=== PATIENT | female | born 1940 | race Caucasian/White ===

== ENCOUNTER 2016-06-14 10:33 | Observation (INO) | payer OTHER, MEDICAID ==
--- NOTE | 2016-06-14 10:50 | EDPHY ---
H & P HPI/ROS: CHIEF COMPLAINT: Hip pain, fall. HISTORY OF PRESENT ILLNESS: The patient is a 76-year-old female with a history of cerebral atherosclerosis and Parkinson's with resultant dementia who presents via EMS after a fall out of bed two nights ago. She has had pain in her right hip since. She had hip x-rays taken yesterday that showed an impacted fracture of the right femoral neck. EMS was notified by Dee Andino when they learned of the x-ray results. She is in a mostly non-verbal state and the history is thus limited. REVIEW OF SYSTEMS: A ten point review of systems was performed and is negative with the exception of the items mentioned in the HPI. Source: Family, EMS, detention records - Medical/Surgical History PMH: 1. Cerebral atherosclerosis. 2. ADD. 3. Parkinson's. 4. Multiple CVAs. 5. Dementia. 6. Hypothyroidism. - Social History Additional Social History: Lives at [place]. Her sister is at the bedside. - Physical Exam Exam: General Appearance: Alert. Vital signs reviewed and are normal. Blood pressure 110/55. Room air pulse ox 90%. Head: Normocephalic atraumatic. Eyes: Pupils equal and round, no conjunctival injection, no discharge. Anicteric. ENT, Mouth: Mucous membranes are dry, no oropharyngeal erythema or edema. Neck: No lymphadenopathy, supple. No parent tenderness with palpation over the cervical spine in the midline. Respiratory: Lungs are clear to auscultation; no wheezes, rales, or rhonchi. Cardiovascular: Regular rate and rhythm; no murmur, rub, or gallop. Occasional ectopy. Gastrointestinal: Abdomen is soft and nontender, no masses or organomegaly, bowel sounds normal. Skin: Warm and dry, no rashes on exposed skin, normal color. Back: Nontender to palpation over the thoracolumbar spine. No CVAT. Extremities: Right leg is foreshortened and rotated. Tender to palpation over the right proximal femur. No lower extremity edema, no calf tenderness or swelling. Trace peripheral edema to right leg. Normal peripheral pulses. Neurological: She is alert, eyes open. Very little verbalization. She is not able to answer orientation questions. She follows some simple commands. Facial expressions appear symmetric. Tongue is midline. Extraocular movements are full. She is spontaneously moving both upper extremities. Psychiatric: Pleasant affect. No agitation. Constitutional: Initial Vital Signs Temperature (C) 36.4 C 06/14/16 10:35 Heart Rate 88 06/14/16 10:35 Respiratory Rate 16 06/14/16 10:35 Blood Pressure 110/55 L 06/14/16 10:35 O2 Sat (%) 90 L 06/14/16 10:35 O2 Delivery Mode Nasal Cannula O2 (L/minute) 2 Allergies/Adverse Reactions: No Known Allergies Allergy (Unverified 06/14/16 10:53) Home Medications: Medication Instructions Recorded Acetaminophen [Tylenol 325mg (*)] 1,300 mg PO Q8HRS PRN 06/14/16 Aspirin [Aspirin 81mg (*)] 81 mg PO DAILY 06/14/16 Bisacodyl [Dulcolax] 10 mg RC DAILY PRN 06/14/16 Carbidopa/Levodopa 25/100Mg 1 tab PO BID@09,18 06/14/16 [Sinemet 25/100 MG (*)] Carbidopa/Levodopa 25/100Mg 1.5 tab PO BID@12,06/14/16 [Sinemet 25/100 MG (*)] Estring Ring 2mg 1 franck VG Q90D 06/14/16 Herbals/Supplements -Info Only 1 ea PO DAILY 06/14/16 LORazepam [Ativan (*)] 0.25 mg PO Q6HRS PRN 06/14/16 Levothyroxine [Synthroid 25 mcg 25 mcg PO DAILY06 06/14/16 (*)] Magnesium Hydroxide [Milk of 30 ml PO DAILY PRN 06/14/16 Magnesia] Sennosides/Docusate Sodium 1 - 2 each PO BID PRN 06/14/16 [Senna-Docusate Sodium Tablet] morphINE [Roxanol 10 mg/0.5 ml 2.5 - 10 mg PO Q2HRS PRN #40 udsyr 06/14/16 oral soln (*)] Medical Decision Making - Diagnostics EKG Interpretation: 12 lead EKG is interpreted in Trace master View by emergency department physician. ED Course/Re-evaluation: The patient is a 76-year-old female on hospice care living at [place]. She arrives with her sister and hospice nurse at bedside. Right hip x-ray ordered. I independently reviewed the patient's imaging studies on the PACS system. Please see Imaging section for radiologist reports. There is a mildly impacted right femoral neck fracture on x-ray. These results were relayed to the patient's sister who is her decision maker. We discussed at some length whether or not surgery should be performed. Her sister told me that she would like her to be able to sit up in a chair and move about. I do not think that she will be able to do that without undergoing surgery. 1143: Consulted with Dr. Garner, orthopedics. He will operate on the patient's hip tonight. I discussed this with the patient's sister. She is comfortable with the plan. An IV will be established. Chest x-ray, EKG ordered. I reviewed the chest x-ray in the radiologist's report. Shows mild Cardiology with some possible pulmonary edema or interstitial lung disease. 1158: Consulted with Dr. Gutiérrez, hospitalist. He accepts admission. Differential Diagnosis: I considered a differential diagnosis that includes but is not limited to pelvic fracture, hip fracture, contusion, and dislocation. - Data Points Laboratory Results: Laboratory Results 06/14/16 10:30 06/14/16 10:30 Medications Given: Discontinued Medications Morphine Sulfate (Morphine) 0.5 - 2 mg IVP Q2 PRN PRN Reason: Pain, Severe Unable to Take PO Stop: 06/24/16 16:05 Last Admin: 06/14/16 17:12 Dose: 2 mg Departure - Departure Disposition: [facility] Inpatient Acute Clinical Impression: Femur fracture, right Qualifiers: Encounter type: initial encounter Femur location: head Fracture type: closed Qualified Code(s): S72.051A - Unspecified fracture of head of right femur, initial encounter for closed fracture Condition: Fair Report Scribed for: Nancy Segura Report Scribed by: Rafi Dickson Date of Report: 06/14/16 Time of Report: 11:18 Physician Review and Approval Statement: 06/14/16 10:50 Portions of this note were transcribed by the biomedical engineering technician. I, Dr. Nancy Segura, personally performed the history, physical exam, and medical decision- making; and confirmed the accuracy of the information in the transcribed note.
[2016-06-14 11:57] LABS: % IMMATURE GRANULYOCYTES 0.5 % (0.0-1.1); ABSOLUTE IMMATURE GRANULOCYTES 0.05 10^3/uL (0.00-0.10); ADD DIFF? NO; ADD MORPH? NO; ADD SCAN? NO; ATYPICAL LYMPHOCYTE FLAG 10 (0-99); FRAGMENT RBC FLAG 0 (0-99); HEMOGLOBIN 12.2 g/dL (12.6-16.3); LEFT SHIFT FLG 0 (0-99); LIPEMIA HEMOLYSIS FLAG 90 (0-99); MEAN CELL HEMOGLOBIN 33.4 pg (27.9-34.1); MEAN CELL HEMOGLOBIN CONCENTR. 33.9 g/dL (32.4-36.7); MEAN CELL VOLUME 98.6 fL (81.5-99.8); MEAN PLATELET VOLUME 9.4 fL (8.7-11.7); PLATELET CLUMPS FLAG 10 (0-99); PLATELET COUNT 268 10^3/uL (150-400); RED BLOOD CELL COUNT 3.65 10^6/uL (4.18-5.33); RED CELL DISTRIBUTION WIDTH 13.8 % (11.5-15.2)
[2016-06-14 12:05] LABS: ANION GAP 10 mEq/L (8-16); CALCIUM 9.1 mg/dL (8.5-10.4); CARBON DIOXIDE 22 mEq/l (22-31); CHLORIDE 105 mEq/L (97-110); CREATININE 0.7 mg/dL (0.6-1.0); GLOMERULAR FILTRATION RATE > 60; GLUCOSE 140 mg/dL (70-100); POTASSIUM 4.1 mEq/L (3.5-5.2); SODIUM 137 mEq/L (134-144)
--- NOTE | 2016-06-14 12:17 | CPEKG ---
Heart Rate: 88 RR Interval: 682 P-R Interval: 156 QRSD Interval: 90 QT Interval: 372 QTC Interval: 450 P Sutton: 81 QRS Sutton: -68 T Wave Sutton: 35 EKG Severity - ABNORMAL ECG - EKG Impression: UNKNOWN RHYTHM, IRREGULAR RATE 71-118 EKG Impression: LEFT ANTERIOR FASCICULAR BLOCK EKG Impression: PROBABLE ANTEROSEPTAL INFARCT, AGE INDETERM Electronically Signed By: Phong Vega 14-Jun-2016 21:57:35
[2016-06-14 13:47] LABS: INR 1.19 (0.83-1.16); PROTIME(PATIENT) 15.1 SEC (12.0-15.0)
[2016-06-14 13:48] LABS: APTT 28.8 SEC (23.0-38.0)
[2016-06-14] MEDS ORDERED: ONDANSETRON 4 MG/2 ML VIAL IVP PRN (16:06)
[2016-06-14] MEDS ORDERED: ONDANSETRON DISINTEGRATING 4 MG TAB PO PRN (16:06)
[2016-06-14] MEDS ORDERED: ACETAMINOPHEN 325 MG TAB PO PRN (16:06)
[2016-06-14] MEDS ORDERED: MAGNESIUM HYDROXIDE 30 ML UDCUP PO PRN (16:08)
[2016-06-14] MEDS ORDERED: SENNOSIDES/DOCUSATE SODIUM TAB PO PRN (16:08)
[2016-06-14] MEDS ORDERED: morphINE 10 MG/0.5 ML UDSYR PO PRN (16:08)
[2016-06-14] MEDS ORDERED: LORazepam 0.5 MG TAB PO PRN (16:08)
--- NOTE | 2016-06-14 16:13 | PDGENHP ---
History and Physical - Chief Complaint Acute hip pain - History of Present Illness 76-year-old female presenting with acute pain characterized as severe, located in the right hip exacerbated by ambulation as well as repositioning. Onset of symptoms was 2 days ago and duration has been intermittent thereafter, occurring only when the patient is being repositioned and pivoting from bed to chair. This occurred after associated fall from her bed while sleeping. Most of history is provided by the patient's sister as the patient is minimally verbal at baseline. The sister reports that there were no other abnormalities prior to her fall. She has not otherwise been expressing any infectious symptoms. The patient's baseline level of functioning is bed and chair pivots in between. She had no longer engages with physical therapy as this has been felt to be inappropriate at this time. She is currently enrolled in hospice but she is not requiring ongoing pain medication. She has been eating and drinking and has not notably lost weight recently. History Information - Allergies/Home Medication List Allergies/Adverse Reactions: No Known Allergies Allergy (Unverified 06/14/16 10:53) Home Medications: Acetaminophen [Tylenol 325mg (*)] 1,300 mg PO Q8HRS PRN 06/14/16 [Last Taken Unknown] Aspirin [Aspirin 81mg (*)] 81 mg PO DAILY 06/14/16 [Last Taken Unknown] Bisacodyl [Dulcolax] 10 mg RC DAILY PRN 06/14/16 [Last Taken Unknown] Carbidopa/Levodopa 25/100Mg [Sinemet 25/100 MG (*)] 1 tab PO BID@,18 06/14/16 [Last Taken Unknown] Carbidopa/Levodopa 25/100Mg [Sinemet 25/100 MG (*)] 1.5 tab PO BID@, [Last Taken Unknown] Estring Ring 2mg 1 franck VG Q90D 06/14/16 [Last Taken Unknown] Herbals/Supplements -Info Only 1 ea PO DAILY 06/14/16 [Last Taken Unknown] Hydrocodone/Acetaminophen [[place] 5/325 (*)] 1 each PO Q4HRS PRN 06/14/16 [Last Taken Unknown] LORazepam [Ativan (*)] 0.25 mg PO Q6HRS PRN 06/14/16 [Last Taken Unknown] Levothyroxine [Synthroid 25 mcg (*)] 25 mcg PO DAILY06 06/14/16 [Last Taken Unknown] Magnesium Hydroxide [Milk of Magnesia] 30 ml PO DAILY PRN 06/14/16 [Last Taken Unknown] Sennosides/Docusate Sodium [Senna-Docusate Sodium Tablet] 1 - 2 each PO BID PRN 06/14/16 [Last Taken Unknown] I have personally reviewed and updated: family history, medical history, social history, surgical history - Past Medical History Additional medical history: Advanced Parkinson's disease with dementia, minimally verbal at baseline. History of CVAs. Hypothyroidism - Surgical History Reports: no pertinent surgical hx - Family History Additional family history: Father with alcoholism and colon cancer - Social History Smoking Status: Never smoked Alcohol Use: None Drug Use: None Additional social history: Receive complete care for her ADLs at [place], only activity is bed to chair with pivoting and she does not ambulate at baseline Review of Systems ROS: 10pt was reviewed & negative except for what was stated in HPI & below Muscolosketal: Reports: joint pain Physical Exam Temp Pulse Resp BP Pulse Ox 36.3 C 89 12 145/84 H 92 06/14/16 13:48 06/14/16 13:48 06/14/16 13:48 06/14/16 13:48 06/14/16 13:48 O2 (L/minute) 1 Constitutional: no apparent distress, not in pain, chronically ill appearing, No uncomfortable Cardiovascular: regular rate and rhythym, no murmur, rub, or gallop, No edema Respiratory: no respiratory distress, no rales or rhonchi, clear to auscultation Gastrointestinal: normoactive bowel sounds, soft, non-tender abdomen, no palpable masses Musculoskeletal: other (Pain with passive range of motion of the right lower extremity, no tenderness to palpation in the right hip) Neurologic: other (Motor strength is 3/5 in the left lower extremity and 5/5 in the distal left lower extremity comma motor strength is 5/5 bilateral upper extremities, patient is able to follow some 1 step commands but has delayed response time and responds better to visual demonstration then auditory command) Lab Data & Imaging Review 06/14/16 10:30 06/14/16 10:30 WBC 10.08 10^3/uL (3.80-9.50) H 06/14/16 10:30 RBC 3.65 10^6/uL (4.18-5.33) L 06/14/16 10:30 Hgb 12.2 g/dL (12.6-16.3) L 06/14/16 10:30 Hct 36.0 % (38.0-47.0) L 06/14/16 10:30 MCV 98.6 fL (81.5-99.8) 06/14/16 10:30 MCH 33.4 pg (27.9-34.1) 06/14/16 10:30 MCHC 33.9 g/dL (32.4-36.7) 06/14/16 10:30 RDW 13.8 % (11.5-15.2) 06/14/16 10:30 Plt Count 268 10^3/uL (150-400) 06/14/16 10:30 MPV 9.4 fL (8.7-11.7) 06/14/16 10:30 Neut % (Auto) 79.4 % (39.3-74.2) H 06/14/16 10:30 Lymph % (Auto) 11.5 % (15.0-45.0) L 06/14/16 10:30 Baca % (Auto) 5.4 % (4.5-13.0) 06/14/16 10:30 Eos % (Auto) 2.8 % (0.6-7.6) 06/14/16 10:30 Baso % (Auto) 0.4 % (0.3-1.7) 06/14/16 10:30 Nucleat RBC Rel Count 0.0 % (0.0-0.2) 06/14/16 10:30 Absolute Neuts (auto) 8.01 10^3/uL (1.70-6.50) H 06/14/16 10:30 Absolute Lymphs (auto) 1.16 10^3/uL (1.00-3.00) 06/14/16 10:30 Absolute Monos (auto) 0.54 10^3/uL (0.30-0.80) 06/14/16 10:30 Absolute Eos (auto) 0.28 10^3/uL (0.03-0.40) 06/14/16 10:30 Absolute Basos (auto) 0.04 10^3/uL (0.02-0.10) 06/14/16 10:30 Absolute Nucleated RBC 0.00 10^3/uL (0-0.01) 06/14/16 10:30 Immature Gran % 0.5 % (0.0-1.1) 06/14/16 10:30 Immature Gran # 0.05 10^3/uL (0.00-0.10) 06/14/16 10:30 PT 15.1 SEC (12.0-15.0) H 06/14/16 10:30 INR 1.19 (0.83-1.16) H 06/14/16 10:30 APTT 28.8 SEC (23.0-38.0) 06/14/16 10:30 Sodium 137 mEq/L (134-144) 06/14/16 10:30 Potassium 4.1 mEq/L (3.5-5.2) 06/14/16 10:30 Chloride 105 mEq/L (97-110) 06/14/16 10:30 Carbon Dioxide 22 mEq/l (22-31) 06/14/16 10:30 Anion Gap 10 mEq/L (8-16) 06/14/16 10:30 BUN 19 mg/dL (7-23) 06/14/16 10:30 Creatinine 0.7 mg/dL (0.6-1.0) 06/14/16 10:30 Estimated GFR > 60 06/14/16 10:30 Glucose 140 mg/dL (70-100) H 06/14/16 10:30 Calcium 9.1 mg/dL (8.5-10.4) 06/14/16 10:30 Visualized and Interpreted Chest x-ray results: Yes Chest X-Ray results: other (Interstitial fullness without focal infiltrate) Visualized and Interpreted EKG results: Yes EKG Interpretation: Positive for: other (Normal sinus rhythm with Q-wave inferiorly, poor R-wave progression in V2 with T-wave inversion) Assessment & Plan Assessment: 76-year-old female presents with acute right hip fracture in the setting of severely advanced Parkinson's disease and very limited baseline functional status Plan: 1. Hip fracture. Acute, x-ray demonstrating a subcap right femoral neck fracture, secondary to mechanical fall sustained 2 days ago -physical exam demonstrates that she has pain with passive range of motion and most likely also has pain when she weight bears -her sister reports that the patient has been symptomatic when she is attempting to pivot from bed to chair -extensively counseled the patient and her sister, given that the patient will have a very limited ability engaging with physical therapy and her baseline physical functioning is very minimal, I would not recommend surgical repair of the affected area if the intention is to improve her overall level of functioning -that being said, if the intention of the surgery is to alleviate future pain which the patient may experience with repositioning or pitting from bed to chair , then a surgery could be justified if pain control could not be obtained by preemptively medicating the patient prior to transfers -the patient's sister has been in contact with hospice agency and she is currently leaning towards non operative management, utilizing as needed morphine for pain control prior to transfers -the current state of the patient is no pain at rest -I have communicated with Dr. Garner and the patient's sister would like to see him in consultation to help reaffirm the conservative direction towards which she is leaning -the patient's nurse and I have discussed this with case management and we are preparing to transfer the patient back to [facility] this evening per patient and family request if the decision is made to proceed non operatively 2. Parkinson's disease. Severely advanced, has concomitant dementia per chart review and outside records obtained from 08/01/[address] Heather Garg when the patient was admitted for gait impairment and slowed thought process as well as difficulty with speech, no improvement with [employer] UND[employer] shunt placement, was demonstrating signs advanced Parkinson's disease and dementia at that time Diet. Currently NPO until orthopedics eval, IV fluids Prophylaxis. High risk patient, Lovenox 40 if remains hospitalized Code. Do not resuscitate per advanced directive, her MPOA is her sister Esther, the patient has been able to verbalize this Disposition. Anticipated discharge is either 4/6 p.m. or 06/15, pending outcome of orthopedics consultation as outlined above. I have spent greater than 70 minutes with the patient and her sister, greater than 50% time spent counseling regarding the above as well as coordinating her care.
[2016-06-14] MEDS ORDERED: NS 1,000 ML IV SCH (16:15)
[2016-06-14 16:26] VITALS: BP 173/88; PULSE 90; RESP 20; TEMP 98.2; O2SAT 91
--- NOTE | 2016-06-14 16:38 | PDIAF ---
- Diagnosis Diagnosis: Acute Right Hip Fracture, Severe Parkinson's Disease Code Status: Do Not Resuscitate - Medication Management Discharge Medications: Medications to Continue on Transfer Acetaminophen [Tylenol 325mg (*)] 1,300 mg PO Q8HRS PRN 06/14/16 [Last Taken Unknown] Aspirin [Aspirin 81mg (*)] 81 mg PO DAILY 06/14/16 [Last Taken Unknown] Bisacodyl [Dulcolax] 10 mg RC DAILY PRN 06/14/16 [Last Taken Unknown] Carbidopa/Levodopa 25/100Mg [Sinemet 25/100 MG (*)] 1 tab PO BID@,06/14/16 [Last Taken Unknown] Carbidopa/Levodopa 25/100Mg [Sinemet 25/100 MG (*)] 1.5 tab PO BID@ [Last Taken Unknown] Estring Ring 2mg 1 franck VG Q90D 06/14/16 [Last Taken Unknown] Herbals/Supplements -Info Only 1 ea PO DAILY 06/14/16 [Last Taken Unknown] LORazepam [Ativan (*)] 0.25 mg PO Q6HRS PRN 06/14/16 [Last Taken Unknown] Levothyroxine [Synthroid 25 mcg (*)] 25 mcg PO DAILY06 06/14/16 [Last Taken Unknown] Magnesium Hydroxide [Milk of Magnesia] 30 ml PO DAILY PRN 06/14/16 [Last Taken Unknown] Sennosides/Docusate Sodium [Senna-Docusate Sodium Tablet] 1 - 2 each PO BID PRN 06/14/16 [Last Taken Unknown] morphINE [Roxanol 10 mg/0.5 ml oral soln (*)] 2.5 - 10 mg PO Q2HRS PRN #40 udsyr 06/14/16 [Last Taken Unknown] Loom Checker Antibiotics: NA Discharge Medications: Refer to the Discharge Home Medication list for PRN reason. PICC Care - Routine: N/A - Orders Services needed: Registered Nurse, Certified Professor Of Languages Oxygen: NA Diet Recommendation: no restrictions on diet Khan: Not applicable Additional: Please coordinate ongoing pain management care with her hospice team - Follow Up Care Current Providers and Referrals: Patient,NotPresent [Unknown] - As per Instructions Lo Garner MD [Medical Doctor] -
--- NOTE | 2016-06-14 16:43 | PDDCSUM ---
Discharge Summary Discharge Summary: DISCHARGE SUMMARY FOLLOW-UP ITEMS None DATE OF ADMISSION: 06/14/16 DATE OF DISCHARGE: 06/14/16 DISCHARGE DIAGNOSES 1. Acute right hip fracture 2. Severe Parkinson's disease CONSULTATIONS Curb side with Orthopedics PROCEDURES / IMAGING X-ray demonstrating right the sub cap femur fracture CHIEF COMPLAINT Acute hip pain SUBJECTIVE Patient is not experiencing pain at rest PHYSICAL EXAM ON DISCHARGE Pain with passive range of motion, no tenderness to palpation over right hip LABS ON DISCHARGE None HOSPITAL COURSE BY PROBLEM After extensive conversation and counseling, the patient's MPOA, sister Esther, decided that the patient would not want to pursue aggressive means of treatment including surgery. Consequently, she would like to proceed with conservative, hospice care and return to [place] this evening. We have provided the patient's care team with a prescription for Roxanol, dose range 2.5 mg-10 mg, as needed, encouraging them to premedicate her prior to transfers in bed or from bed to wheelchair. Esther has been communicating with the patient's hospice care team and reports that they are ready to assume care. I have communicated with Dr. Garner and he has related to me that if the patient and her MPOA decided that they would like to consider surgical options in the future if she continues to experience severe pain with transfers, then they can contact the office of Dr. Garner and request consultation at that time. He does advise that hip fracture such as these do represent the metabolic deterioration of the body and generally result in decline and eventual over subsequent weeks or months. That being said, prior to this acute event, the patient had already been on that trajectory with enrollment in hospice care, weight loss, reduced functional status. DISCHARGE MEDICATIONS Please see official discharge medication reconciliation sheet in chart , Roxanol as needed every 2 hours. DISCHARGE INSTRUCTIONS Please contact Dr. Garner office if he can be of any other assistance.
[2016-06-14] MEDS ORDERED: CARBIDOPA/LEVODOPA 25 MG/100 MG TAB PO SCH ×2 (18:00→21:00)
[2016-06-15] MEDS ORDERED: LEVOTHYROXINE 25 MCG TAB PO SCH (06:00)
[2016-06-15] MEDS ORDERED: Herbals/Supplements -Info Only PO SCH (09:00)
[2016-06-15] MEDS ORDERED: ASPIRIN 81 MG CHEWABLE TAB PO SCH (09:00)
[2016-06-15] MEDS ORDERED: ENOXAPARIN 40 MG/0.4 ML SYR SC SCH (09:00)
== END 2016-06-14 17:40 ==
LOC: EDUNIT# → INTOOBSV 12:02 → F3N 13:38
PROVIDERS: ADMIT Family Medicine; ATTEND Internal Medicine
DX: S72.011A Unspecified intracapsular fracture of right femur, initial encounter for closed fracture (principal); W06.XXXA Fall from bed, initial encounter; Y92.122 Bedroom in nursing home as the place of occurrence of the external cause; G31.83 Neurocognitive disorder with Lewy bodies; I67.2 Cerebral atherosclerosis; E03.9 Hypothyroidism, unspecified; Z86.73 Personal history of transient ischemic attack (TIA), and cerebral infarction without residual deficits
CPT/HCPCS: 71010; 73502; 93005; G0378